=== PATIENT | male | born 1950 | race Caucasian/White ===

== ENCOUNTER → 2018-01-14 | Outpatient (CLI) | payer MEDICARE, OTHER ==
--- NOTE | 2018-01-14 14:28 | REP ---
Prostate sonography: History: Elevated PSA Sonographic findings: Trans rectal prostate sonography demonstrates unremarkable seminal vesicles. Prostate gland is heterogeneously enlarged with calcifications and cystic changes noted. Glandular dimensions are measured at 3.8 x 2.7 x 4.0 cm with a calculated glandular volume of 21.2 ml. There is a 0.8 cm nodule on the right side of the prostate gland. Two left-sided nodules are seen measuring 0.6 and 0.5 cm. Transrectal sonographic guidance provided to Dr. Altamirano who performed trans rectal ultrasound guided needle biopsy procedure . Electronically Signed by French Bautista MD 01/14/2018 02:20 P
== END ==
LOC: M SMT PRO 09:51
PROVIDERS: ATTEND Nurse Practitioner Family
DX: C61 Malignant neoplasm of prostate (principal)
CPT/HCPCS: 55700; 76872; 76942; G0416